=== PATIENT | female | born 1955 | race Caucasian/White ===

== ENCOUNTER → 2017-09-14 | Outpatient (CLI) | payer BC ==
[~2017-09-14] MED LIST: NASONEX SPRAY NAS; ZYRTEC 10MG PO
== END ==
LOC: MC.RAD 07:20
DX: Z12.31 Encounter for screening mammogram for malignant neoplasm of breast (principal)

== ENCOUNTER 2019-08-12 19:17 | Observation (INO) | payer BC ==
[~2019-08-12] VITALS: Ht 170.2 cm; Wt 67.7 kg
[2019-08-12 19:57] LABS: COLLECTION METHOD CLEAN CATCH
[2019-08-12 20:02] LABS: BASO # 0.1 (0.0-0.2); BASO % 0.5 % (0.0-2.0); EOS # 0.6 (0.0-0.7); EOS % 5.2 % (0-4.0); GRAN # 8.2 (1.4-6.5); GRAN % 67.6 % (42.2-75.2); HEMATOCRIT 37.1 % (37.0-47.0); HEMOGLOBIN 12.1 g/dl (12.5-16.0); LYMPH % 16.7 % (20.0-51.0); MEAN CELL VOLUME 98 fl (80.0-100.0); MEAN CORPUSCULAR HEMOGLOBIN 32 pg (27.0-31.0); MEAN CORPUSCULAR HGB CONC 33 g/dl (33.0-37.0); MEAN PLATELET VOLUME 11.9 fl (7.4-10.4); MONO # 1.2 (0.1-0.6); MONO % 9.8 % (1.7-9.3); PLATELET COUNT 280 K/mm3 (130-400); RED BLOOD COUNT 3.77 M/mm3 (4.10-5.30); REDCELL DISTRIBUTION WIDTH-CV 11.8 % (11.5-14.5)
[2019-08-12 20:10] LABS: ALBUMIN 3.9 gm/dL (3.5-5.0); BILIRUBIN,TOTAL 0.4 mg/dL (0.0-1.0); C-REACTIVE PROTEIN 4.7 mg/dL (0.0-0.9); CALCIUM 9.2 mg/dL (8.4-10.2); CREATININE, serum 0.69 (0.52-1.25); POTASSIUM 3.9 mmol/L (3.4-5.0); TOTAL PROTEIN 7.2 gm/dL (6.4-8.2)
[2019-08-12 20:13] LABS: MUCOUS Present /lpf; PH 5 (5-8); SQUAMOUS EPITHELIAL None Seen /hpf; URINE APPEARANCE Clear; URINE BACTERIA Rare /hpf; URINE BILIRUBIN Negative (NEGATIVE); URINE BLOOD 2+ (NEGATIVE); URINE COLOR Yellow; URINE GLUCOSE Negative (NEGATIVE); URINE KETONE 1+ (NEGATIVE); URINE LEUKOCYTE ESTERASE Negative (NEGATIVE); URINE NITRATE Negative (NEGATIVE); URINE PROTEIN(semi-quant) Negative (NEGATIVE)
--- NOTE | 2019-08-12 23:15 | NUR ---
PT ADMITTED TO ROOM 342 PER WC FROM ER. REPORT REC'D FROM EFRAIN MANRIQUEZ. PT COMFORTABLE AT THIS TIME. NO ABD PAIN N/V. IV LT AC STARTED PER PUMP AT 125CC/HR. KATINAN HANGING FROM ER- CONTINUES. ORIENTED TO ROOM & PLAN OF CARE.
[2019-08-12 23:18] VITALS: BP 125/61; PULSE 72; TEMP 98.6
[2019-08-13] VITALS (11 sets, daily range): BP systolic 111–153; BP diastolic 59–81; PULSE 58–96; TEMP 97.4–98.5
--- NOTE | 2019-08-13 | NUR ---
NPO AT THIS TIME.
[2019-08-13] MEDS ORDERED: LEVOXYL0.025 MG PO (00:17)
--- NOTE | 2019-08-13 05:44 | NUR ---
PT AWAKE. C/O MILD RT FLANK DISCOMFORT. ASSISTED TO THE SHOWER FOR SURGERY THIS AM. VOIDING W/O DIFFICULTY.
--- NOTE | 2019-08-13 07:10 | NUR ---
awake resting in bed, bedside shift report received from DECLAN Agustin
--- NOTE | 2019-08-13 08:13 | NUR ---
awake and resting in bed, full assessment compoleted, see interventions for further info, up and about in room independently, denies needs
--- NOTE | 2019-08-13 09:30 | NUR ---
resting in bed with TV on and at bedside, denies needs
--- NOTE | 2019-08-13 10:21 | NUR ---
Patient lives at home with her (Edgard [phone]) in [place], [place] and plans to return home upon recovery. 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 Patient has no durable medical equipment usage or anticipated needs, her primary care physician is Amarjit Thakur, her [facility] is [facility], and she does not have advance directives of healthcare completed at this time. No further needs and social sciences research scientist will follow as needed.
--- NOTE | 2019-08-13 11:20 | NUR ---
to surgery per bed, report given to Michael Hinojosa RN
[2019-08-13] MEDS ORDERED: MOTRIN 600600 MG/TAB PO (14:31)
[2019-08-13] MEDS ORDERED: PERCOCET 325 MG1 TA2 PO (14:31)
[2019-08-13] MEDS ORDERED: AMOXICILLIN 8751 TAB PO (14:32)
--- NOTE | 2019-08-13 14:55 | NUR ---
Received patient from PACU per bed. Denied pain. Complained of mild nausea. Abdominal lap sites CDI. VSS.
--- NOTE | 2019-08-13 17:00 | NUR ---
Slept. VSS. Ambulatory to bathroom to void. Walked in halls with staff. Denied pain or nausea.
--- NOTE | 2019-08-13 19:00 | NUR ---
IVF DC'D FROM LT AC. REVIEWED DISCHARGE INSTRUCTIONS WITH PATIENT AND . DENIES FURTHER QUESTIONS. PT UP GETTING DRESSED. LAP INCISIONS CDI. NO NAUSEA. HAS VOIDED W/O DIFFICULTY. GRACE GARAY RN GAVE PRESCRIPTIONS TO .
== END 2019-08-13 19:57 | disposition home or self-care (01) ==
LOC: COL.ER 19:17 → SURG 21:50
PROVIDERS: Emergency Medicine; ADMIT Surgery
DX: K80.12 Calculus of gallbladder with acute and chronic cholecystitis without obstruction (principal); I38 Endocarditis, valve unspecified; Z98.51 Tubal ligation status; Z79.899 Other long term (current) drug therapy; Z87.11 Personal history of peptic ulcer disease
CPT/HCPCS: G0378; J0696; J1100; J2405; J2543; J2550; J2704; J3010; J7030; J7120; Q9967

== ENCOUNTER → 2021-01-14 | Outpatient (CLI) | payer BC ==
[~2021-01-14] MED LIST changes: +AMOXICILLIN 8751 TAB PO; +LEVOXYL0.025 MG PO; +MOTRIN 600600 MG/TAB PO; +PERCOCET 325 MG1 TA2 PO
== END ==
LOC: MC.RAD 10:02
DX: Z12.31 Encounter for screening mammogram for malignant neoplasm of breast (principal)

== ENCOUNTER → 2022-01-27 | Outpatient (CLI) | payer BC | LOC: MC.RAD 09:30 | DX: Z12.31 Encounter for screening mammogram for malignant neoplasm of breast (principal) ==

== ENCOUNTER → 2023-02-02 | Outpatient (CLI) | payer MEDICARE | LOC: MC.RAD 08:00 | DX: Z12.31 Encounter for screening mammogram for malignant neoplasm of breast (principal) ==

== ENCOUNTER → 2024-08-01 | Outpatient (CLI) | payer MEDICARE | LOC: MC.RAD 07:44 | DX: Z12.31 Encounter for screening mammogram for malignant neoplasm of breast (principal); N63.20 Unspecified lump in the left breast, unspecified quadrant ==